=== PATIENT | male | born 1995 | race Hispanic/Latino ===

== ENCOUNTER 2022-08-24 09:33 | Emergency (ER) | payer SELFPAY ==
[2022-08-24] VITALS (11 sets, daily range): BP systolic 117–140; BP diastolic 59–89
[~2022-08-24] VITALS: Ht 160 cm; Wt 97.7 kg
[2022-08-24 13:18] LABS: BASO% 0.4 % (0-3); HEMATOCRIT 46.8 % (39.0-50.0); HEMOGLOBIN 15.2 g/dl (14.0-18.0); IMMATURE GRANULOCYTES 0.4 % (0.0-5.0); LYMPH% 20.9 % (15-41); MEAN CELL VOLUME 90.9 fL CALC (80.0-100.0); MEAN CORPUSCULAR HGB 29.5 pG CALC (26.0-32.0); MEAN CORPUSCULAR HGB CONC 32.5 g/dL CAL (32.0-36.0); MONO% 20.9 % (2-13); NEUT# 1.62 thou/uL (1.82-7.42); NEUT% 57.4 % (42-76); RED BLOOD COUNT 5.15 mill/uL (4.70-6.10); RED CELL DISTRI WIDTH 12.2 % (11.5-15.5)
[2022-08-24 14:11] LABS: ALBUMIN 3.8 g/dL (3.2-5.0); ALKALINE PHOSPHATASE 99 u/l (38-126); ANION GAP 9 (6-22 (CALC)); BUN 11 mg/dL (9-20); BUN/CREATININE RATIO 17 (12-20 (CALC)); CARBON DIOXIDE 25 mmol/l (22-30); CHLORIDE 106 mmol/l (95-108); CREATININE 0.6 mg/dL (0.7-1.3); GFR FOR AFR.AMER. > 60 ML/MIN (>=60 (CALC)); GFR OTHER RACES > 60 ML/MIN (>=60 (CALC)); LIPASE 155 u/l (23-300); POTASSIUM 3.7 mmol/l (3.5-5.1); SGOT/AST 435 u/l (17-59); SODIUM 137 mmol/l (137-146); TOTAL PROTEIN 6.7 g/dL (6.3-8.2)
[2022-08-24 14:15] LABS: URINE BILIRUBIN - DIPSTICK NEGATIVE (NEGATIVE); URINE BLOOD DIPSTICK NEGATIVE (NEGATIVE); URINE COLOR YELLOW; URINE GLUCOSE - DIPSTICK NEGATIVE (NEGATIVE); URINE KETONE TRACE mg/dL (NEGATIVE); URINE LEUK ESTERASE NEGATIVE (NEGATIVE); URINE PROTEIN - DIPSTICK TRACE mg/dL (NEG-TRACE); URINE SPECIFIC GRAVITY >=1.030; URINE UROBILINOGEN - DIPSTICK 0.2 E.U./dL (0.2)
[2022-08-24 14:16] LABS: URINE NITRITE - DIPSTICK NEGATIVE (Negative)
[2022-08-24] MEDS ORDERED: FIORICET PO (15:19)
[2022-08-24] MEDS ORDERED: AMOX/K CLAV875 M1 PO (15:19)
== END 2022-08-24 15:44 | disposition home or self-care (01) | DRG 866 ==
LOC: ED 09:33
PROVIDERS: Nurse Practitioner
DX: B34.9 Viral infection, unspecified (principal); Z20.822 Contact with and (suspected) exposure to COVID-19

== ENCOUNTER 2022-09-01 23:34 | Observation (INO) | payer SELFPAY ==
[~2022-09-01] VITALS: Ht 160 cm; Wt 92.0 kg
[~2022-09-01 23:34] MED LIST: AMOX/K CLAV875 M1 PO; FIORICET PO
[2022-09-02] VITALS (38 sets, daily range): BP systolic 83–124; BP diastolic 38–77
--- NOTE | 2022-09-02 01:00 | NUR ---
PT IN ROOM 10 FOR TRIAGE C/O RASH AFTER EATING SHRIMP FOR LUNCH
[2022-09-02 01:47] LABS: BASO% 0.3 % (0-3); HEMATOCRIT 44.8 % (39.0-50.0); HEMOGLOBIN 15.4 g/dl (14.0-18.0); LYMPH% 17.7 % (15-41); MEAN CELL VOLUME 87.3 fL CALC (80.0-100.0); MEAN CORPUSCULAR HGB CONC 34.4 g/dL CAL (32.0-36.0); MONO% 2.6 % (2-13); NEUT# 2.39 thou/uL (1.82-7.42); NEUT% 78.4 % (42-76); RED BLOOD COUNT 5.13 mill/uL (4.70-6.10); RED CELL DISTRI WIDTH 11.7 % (11.5-15.5)
[2022-09-02 02:03] LABS: ALBUMIN 4.1 g/dL (3.2-5.0); ALKALINE PHOSPHATASE 66 u/l (38-126); ANION GAP 11 (6-22 (CALC)); BILIRUBIN, TOTAL 0.4 mg/dL (0.2-1.3); BUN 13 mg/dL (9-20); BUN/CREATININE RATIO 15 (12-20 (CALC)); CARBON DIOXIDE 27 mmol/l (22-30); CHLORIDE 96 mmol/l (95-108); CREATININE 0.8 mg/dL (0.7-1.3); GFR FOR AFR.AMER. > 60 ML/MIN (>=60 (CALC)); GFR OTHER RACES > 60 ML/MIN (>=60 (CALC)); POTASSIUM 3.6 mmol/l (3.5-5.1); SGOT/AST 162 u/l (17-59); SODIUM 130 mmol/l (137-146); TOTAL PROTEIN 7.6 g/dL (6.3-8.2)
--- NOTE | 2022-09-02 03:00 | NUR ---
PT IN BED RESTING WITH EYES OPEN. PT IS DIAPHORETIC. BED SHEETS CHANGED AND PROVIDED PT WITH A DRY GOWN. VSS, NAD
[2022-09-02 03:56] LABS: URINE BILIRUBIN - DIPSTICK NEGATIVE (NEGATIVE); URINE BLOOD DIPSTICK NEGATIVE (NEGATIVE); URINE COLOR YELLOW; URINE GLUCOSE - DIPSTICK NEGATIVE (NEGATIVE); URINE KETONE 15 mg/dL (NEGATIVE); URINE LEUK ESTERASE NEGATIVE (NEGATIVE); URINE PH 6.5 (4.5-8.0); URINE PROTEIN - DIPSTICK 100 mg/dL (NEG-TRACE); URINE SPECIFIC GRAVITY 1.015
[2022-09-02 04:00] LABS: URINE NITRITE - DIPSTICK NEGATIVE (Negative)
[2022-09-02 04:08] LABS: URINE SQUAMOUS EPITHELIAL CELL FEW EPI/hpf (0-FEW)
--- NOTE | 2022-09-02 04:30 | NUR ---
PROVIDER ASKED THAT PT'S GAIT BE ASSESS. PT WAS ABLE TO WALK UP AND DOWN THE HALLWAY WITH A SLOW STEADY GAIT. NO DISTRESSED NOTED
--- NOTE | 2022-09-02 06:00 | NUR ---
Reassessment of patient completed. No distress noted.
--- NOTE | 2022-09-02 07:35 | NUR ---
PT IS SLEEPING, EASILY AROUSABLE.
--- NOTE | 2022-09-02 09:00 | NUR ---
PT R'CD BFAST TRAY AND HAS NO NEEDS AT THIS TIME. NO CHANGE TO ASSESSMENT.
== END 2022-09-02 12:50 | disposition home or self-care (01) | DRG 607 ==
LOC: ED 23:34 → ED-I 09-02 04:07 → ED 09-02 04:40 → ED-I 09-02 04:41
PROVIDERS: Emergency Medicine; ADMIT Internal Medicine; ATTEND Internal Medicine
DX: L50.0 Allergic urticaria (principal); B27.90 Infectious mononucleosis, unspecified without complication